=== PATIENT | male | born 1970 | race Caucasian/White ===

== ENCOUNTER 2023-07-24 08:32 | Day surgery (SDC) | payer BC ==
[~2023-07-24] VITALS: Ht 188 cm; Wt 112.5 kg
[~2023-07-24 08:32] MED LIST: CEFAZOLIN SOD 2 GM in D5W 50 ML IV ONE
[2023-07-24 09:45] VITALS: O2SAT 100
[2023-07-24] MEDS ORDERED: LR 1,000 ML IV.SOLN IV ONE (12:04)
[2023-07-24] MEDS ORDERED: PROPOFOL 200MG/ 20ML VIAL (DIPRIVAN) IV ONE (12:04)
[2023-07-24] MEDS ORDERED: NS IRRIG SOLN 1000 ML IR ONE (12:04)
[2023-07-24] MEDS ORDERED: ONDANSETRON HCL 4 MG/2 ML VIAL ONE (12:04)
[2023-07-24] MEDS ORDERED: SUCCINYLCHOLINE CHLORIDE 20 MG/ML(QUELICIN) ONE (12:04)
[2023-07-24] MEDS ORDERED: SEVOFLURANE 15 MIN GAS INH ONE (12:04)
[2023-07-24] MEDS ORDERED: WATER FOR IRRIGATION,STERILE 1,000 ML IRRIG.SOLN IR ONE (12:04)
[2023-07-24] MEDS ORDERED: KETOROLAC TROMETHAMINE 30 MG VIAL ONE (12:04)
[2023-07-24] MEDS ORDERED: LIDOCAINE/EPI 1% 1:100000 20 ML VIAL ONE (12:04)
[2023-07-24] MEDS ORDERED: MIDAZOLAM HCL/PF 2 MG/2 ML SYRINGE ONE (12:04)
[2023-07-24] MEDS ORDERED: METOCLOPRAMIDE HCL 10 MG/2 ML VIAL IVP PRN (13:30)
[2023-07-24] MEDS ORDERED: HYDROmorphone 1 MG/ML INJ. CARTRIDGE IVP PRN (13:30)
[2023-07-24] MEDS ORDERED: ONDANSETRON HCL 4 MG/2 ML VIAL IVP PRN ×2 (13:30→14:45)
[2023-07-24] MEDS ORDERED: ACETAMINOPHEN I.V. 1000 MG 100 ML IV ONE (13:30)
[2023-07-24] MEDS ORDERED: HYDROcodone/ACETAMIN 5-325 MG TAB (NORCO/ VICODIN) PO PRN (14:45)
[2023-07-24] MEDS ORDERED: ONDANSETRON 4 MG ODT TAB PO PRN (14:45)
[2023-07-24 16:36] VITALS: BP_SYST 139; PULSE 76; RESP 16
== END 2023-07-24 16:45 | disposition home or self-care (01) ==
LOC: SDS 08:32 → SMU 08:33 → SDS 16:45
PROVIDERS: ATTEND Otolaryngology
DX: J34.2 Deviated nasal septum (principal); J34.3 Hypertrophy of nasal turbinates; K21.9 Gastro-esophageal reflux disease without esophagitis; E66.9 Obesity, unspecified; G47.33 Obstructive sleep apnea (adult) (pediatric); Z68.35 Body mass index [BMI] 35.0-35.9, adult; F41.9 Anxiety disorder, unspecified; F17.210 Nicotine dependence, cigarettes, uncomplicated; Z79.899 Other long term (current) drug therapy
CPT/HCPCS: 87081; 30520; 30140; 88305; J0690; J1885; J3465; J2405; J2704; J0330; J7060; J7120; J0131; 88304; 88311